=== PATIENT | male | born 1995 | race Hispanic/Latino ===

== ENCOUNTER 2023-09-05 10:20 | Emergency (ER) | payer SELFPAY ==
[2023-09-05] VITALS (10 sets, daily range): BP systolic 47–123; BP diastolic 27–84
[~2023-09-05] VITALS: Ht 154.9 cm; Wt 63.5 kg
[2023-09-05] MEDS ORDERED: oxyCODONE 5MG/ ACETAMINOPHEN 325MG TAB PO ONE (11:15)
[2023-09-05] MEDS ORDERED: TRAMADOL HYDROC50 M1 PO (12:31)
== END 2023-09-05 13:05 | disposition home or self-care (01) | DRG 563 ==
LOC: ED 10:20
PROC: 2W3QX1Z Immobilization of Right Lower Leg using Splint (ICD-10-PCS; principal; 2023-09-05)
DX: S82.831A Other fracture of upper and lower end of right fibula, initial encounter for closed fracture (principal); X50.0XXA Overexertion from strenuous movement or load, initial encounter; Y93.51 Activity, roller skating (inline) and skateboarding